=== PATIENT | female | born 1945 | race Caucasian/White ===

== ENCOUNTER 2019-03-25 18:11 | Observation (INO) ==
[2019-03-25] MEDS ORDERED: NS 1,000 ML IV ONE (18:49)
--- NOTE | 2019-03-25 19:35 | Diag Imaging Result Doc PS360 ---
EXAM: CT HEAD W/O CONTRAST HISTORY: X2 LOC TECHNIQUE: CT head without contrast COMPARISON: None. FINDINGS: No parenchymal hemorrhage. No epidural or subdural hematoma. No subarachnoid hemorrhage. There are chronic microvascular ischemic changes. No mass identified on this noncontrasted exam. No hydrocephalus. No sinus opacification. IMPRESSION: 1.No hemorrhage 2.Chronic microvascular ischemic changes This exam was performed using automated exposure control, adjustment of mA or kV according to patient size, and/or use of iterative reconstruction technique. Electronically signed by Gilmar Myles 03/25/2019 7:32 PM
--- NOTE | 2019-03-25 19:36 | Diag Imaging Result Doc PS360 ---
EXAM: CERVICAL SPINE COMPLETE HISTORY: MULTIPLE LOC AND NECK PAIN TECHNIQUE: AP and lateral with obliques, five views COMPARISON: None. FINDINGS: There is good alignment to the cervical spine. No precervical soft tissue swelling. Slight subluxation of C4 on C5. Moderate degenerative bone spurring in the lower cervical spine. IMPRESSION: Moderate degenerative changes in the lower cervical spine. Electronically signed by Gilmar Myles 03/25/2019 7:34 PM
[2019-03-25 20:14] LABS: URINE SOURCE CLEAN CATCH
[2019-03-25 20:14] LABS: BASO# 0.03 X1000 (0.0-0.2); BASO% 0.6 % (0.0-0.8); HEMATOCRIT 35.6 % (37.0-47.0); HEMOGLOBIN 11.9 g/dL (12.0-16.0); LYMPH# 1.08 X1000 (1.2-3.4); LYMPH% 19.8 % (20.5-51.1); MCH 30.4 PG (27-31); MCHC 33.4 g/dL (33-37); MONO# 0.35 X1000 (0.11-0.59); MONO% 6.4 % (1.7-9.3); MPV 9.3 FL (7.4-10.4); NEUT# 3.99 X1000 (1.4-6.5); NEUT% 73.2 % (42.2-75.2); PLT 269 X1000 (130-400); RBC 3.91 XMIL (4.2-5.4); RDW 12.8 % (11.5-14.5); WBC 5.45 X1000 (4.8-10.8)
[2019-03-25 20:22] LABS: AGAP 12; ALB/GLOB RATIO 1.7; ALBUMIN 4.2 g/dL (3.5-5.0); ALKALINE PHOSPHATASE 104 U/L (32-104); BUN 25 mg/dL (8-22); CALCIUM 9.5 mg/dL (8.8-10.2); CHLORIDE 99 mmol/L (98-107); COSMO 268; CREATININE 1.3 mg/dL (0.5-0.9); ESTIMATED GFR 40; GLUCOSE 110 mg/dL (70-104); GOT 17 U/L (10-30); GPT 15 U/L (10-36); POTASSIUM 4.4 mmol/L (3.5-5.1); SODIUM 131 mmol/L (136-145); TCO2 20 mmol/L (25-35); TOTAL BILIRUBIN < 0.15 mg/dL (0.20-1.00); TOTAL PROTEIN 6.7 g/dL (6.3-8.3)
[2019-03-25 20:27] LABS: BILIRUBIN URINE NEGATIVE (NEGATIVE); BLOOD URINE NEGATIVE (NEGATIVE); COLOR YELLOW; GLUCOSE URINE NEGATIVE (NEGATIVE); KETONE URINE NEGATIVE (NEGATIVE); LEUKOCYTES URINE MODERATE (NEGATIVE); NITRITE URINE NEGATIVE (NEGATIVE); PH URINE 6.5; PROTEIN URINE 30 mg/dL (NEGATIVE); SP GRAVITY URINE 1.021; TURBIDITY URINE CLEAR (CLEAR); UROBILINOGEN URINE 2 mg/dL (NORMAL)
[2019-03-25 20:32] LABS: UR EPITHELIAL CELLS <10 /HPF (<10); URINE BACTERIA NEGATIVE /HPF; URINE RBC <10 /HPF (<10); URINE WBC <10 /HPF (<10)
[2019-03-25 20:47] LABS: URINE CRYSTALS CA OXALATE PRESENT
--- NOTE | 2019-03-25 23:04 | PROVIDER DOCUMENTATION ---
This chart was entered by Bhavana Vance Scribe, acting as scribe for Arianna Ortega MD. HPI-Syncope/Dizziness - General Chief Complaint: Syncope Stated Complaint: SYNCOPE Time Seen by Provider: 03/25/19 18:25 Source: patient Allergies/Adverse Reactions: Patient Allergies Allergy/AdvReac Type Severity Reaction Status Date / Time azithromycin Allergy Unknown Verified 12/16/15 22:42 codeine Allergy RASH Verified 12/16/15 22:42 risperidone Allergy Unknown Verified 12/16/15 22:42 Sulfa (Sulfonamide Allergy SWELLING Verified 12/16/15 22:42 Antibiotics) aspirin AdvReac ABDOMINAL Verified 12/16/15 22:42 PAIN ciprofloxacin [From Cipro] AdvReac DIARRHEA Verified 12/16/15 22:42 ciprofloxacin HCl * AdvReac DIARRHEA Verified 12/16/15 22:42 [From Cipro] ketorolac tromethamine * AdvReac Unknown Verified 12/16/15 22:42 [From Toradol] levofloxacin [From Levaquin] AdvReac Unknown Verified 12/16/15 22:42 WALNUTS Allergy SWELLING Uncoded 12/16/15 22:42 Home Medications: Home Medication List Medication Instructions Recorded Confirmed Last Taken Type Apixaban [Eliquis] 2.5 mg PO BID 12/16/15 12/16/15 12/16/15 History Bupropion X.l. [Wellbutrin Xl] 300 mg PO DAILY 12/16/15 12/16/15 12/16/15 Histor y Buspirone [Buspar] 20 mg PO TID 12/16/15 12/16/15 12/16/15 History Clotrimazole 12/16/15 12/16/15 History Denosumab [Prolia] 12/16/15 1 Month Ago History ~11/16/15 Ferrous Sulfate 325 mg PO DAILY 12/16/15 12/16/15 12/16/15 History Fluconazole 150 mg PO DIRECTED 12/16/15 12/16/15 Unknown History Furosemide 40 mg PO QAM 12/16/15 12/16/15 12/16/15 History Gabapentin 600 mg PO TID 12/16/15 12/16/15 12/16/15 History Hydroxyzine [Atarax] 25 mg PO TID 12/16/15 12/16/15 12/16/15 History Lactobacillus Acidophilus 12/16/15 12/16/15 History [Acidophilus] Levothyroxine [Synthroid] 75 mg PO DIRECTED 12/16/15 12/16/15 12/16/15 History Lisinopril 5 mg PO QAM 12/16/15 12/16/15 12/16/15 History Omeprazole 20 mg PO BID 12/16/15 12/16/15 12/16/15 History Oxcarbazepine 600 mg PO BID 12/16/15 12/16/15 12/16/15 History Topiramate [Topamax] 150 mg PO BID 12/16/15 12/16/15 12/16/15 History Tramadol HCl [Ultram] 50 mg PO BID 12/16/15 12/16/15 12/16/15 History Amoxicillin/Potassium Clav 1 each PO BID #20 tablet 12/17/15 Unknown Rx [Augmentin 875-125 Tablet] Nitrofurantoin Monohyd/M-Cryst 100 mg PO BID #20 capsule 12/17/15 Unknown Rx [Macrobid 100 mg Capsule] Phenazopyridine HCl [Pyridium] 200 mg PO TID #6 tablet 12/17/15 Unknown Rx - History of Present Illness-Syncope/Dizzy Nature of Presenting Problem: pt is a 73 yr old female presenting with complaint of syncope today. pt also rep orts she has had 2 episodes in 3 days (SINCE SUNDAY). today pt reports she felt nauseated, weak and dizzy beginning approx 2 hours prior to episode. episode was witnessed by friends. 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 pt denies any chest pain or shortness of breath prior to syncopal episode. PER PATIENT, CURRENTLY ON CEPHALEXIN FOR UTI TREATMENT FOR COURSE OF 14 DAYS TOT AL. CURRENTLY DENIES ANY DYSURIA OR FREQUENT URINATION. Prior Episodes: reports: single episode today, recent history (3x in 3days) Onset/Duration: reports: just prior to arrival Timing: reports: resolved prior to arrival Position/Activity at time of episode: reports: standing Symptoms prior to episode: reports: nausea/vomiting, other (dizzy, weakness). denies: chest pain Duration of preceding symptoms? (mins): 120 Context: reports: lost consciousness, collapsed, confused after event Loss of Consciousness: brief (seconds) Location of injury. (If syncope resulted in an injury.): reports: none Current Symptoms: reports: none/feels normal Recently Seen Here or By Another Healthcare Provider: No Review of Systems - Adult - REVIEW OF SYSTEMS - ADULT Constitutional: reports: fatique. denies: fever Eyes: denies: blurred vision, double vision Ears, Nose, Mouth & Throat: reports: no symptoms reported Cardiovascular: reports: syncope. denies: chest pain, palpitations Respiratory: denies: cough, shortness of breath Gastrointestinal: reports: nausea. denies: abdominal pain, diarrhea, vomiting Genitourinary: reports: no symptoms reported Musculoskeletal: denies: back pain, joint pain, muscle weakness Integumentary: reports: no symptoms reported Neurological: reports: dizziness/vertigo, syncope. denies: headache/migraines, seizure Psychiatric: reports: no symptoms reported Endocrine: reports: no symptoms reported Hematologic/Lymphatic: reports: no symptoms reported Allergic/Immunologic: reports: no symptoms reported All Other Systems: Reviewed and Negative Past History - Adult - PAST MEDICAL HISTORY-ADULT Review of Records: reports: Old Records Reviewed, Nursing Assessment Review, Medications Reviewed, Social history reviewed & non-contributory. Major Childhood Illnesses: reports: denies history Cardiovascular: reports: SD Respiratory: reports: pneumonia, sleep apnea Gastrointestinal: reports: denies history Obstetrical/Gynecological: reports: denies history Genitourinary: reports: denies history Musculoskeletal: reports: denies history Neurological: reports: CVA Endocrine/Immune: reports: denies history Other Conditions: reports: denies history - PRIOR SURGERIES/PROCEDURES Surgical/Procedure History: reports: hysterectomy, other (cataract removal, renal stent ) - IMMUNIZATION STATUS Childhood Immunizations: See Nurse Assessment Flu Vaccine: See Nurse Assessment - FAMILY HISTORY Family History: reviewed, not pertinent - SOCIAL HISTORY Smoking: non-smoker Substance Use: none/never, denies Living Situation: family Physical Exam-General - PHYSICAL EXAM-ADULT Initial Vital Signs Reviewed: Yes - CONSTITUTIONAL General Appearance: appears well, alert, no apparent distress - EYES Eyes: PERRL/EOMI - HEAD, EARS, NOSE, MOUTH & THROAT HENMT: normocephalic/atraumatic, normal ENT inspection. negative: moist mucous membranes (dry lips, mildy dry oral mucosa) - NECK Neck: non-tender, full range of motion, supple, normal inspection - RESPIRATORY Respiratory: chest non-tender, lungs clear, normal breath sounds - CARDIOVASCULAR Cardiovascular: normal peripheral pulses, regular rate, rhythm, no edema - GASTROINTESTINAL (ABDOMEN) Abdominal Exam: normal bowel sounds, non tender, soft - LYMPHATIC Lymphatic: no adenopathy - MUSCULOSKELETAL Back Exam: normal inspection, no CVA tenderness, no vertebral tenderness Extremity: normal range of motion, non-tender, normal gait, normal inspection - SKIN Integumentary: normal color, warm/dry. negative: normal turgor (poor skin tu rgur) - NEUROLOGIC Neurologic: grossly normal, no motor/sensory deficits - PSYCHIATRIC Psych/Mental Status: normal mood/affect, normal thought content, normal thought process, oriented x 3 Progress - PLAN OF CARE/RESULTS Progress/Plan/Lab Results: Vital Signs - 8 hr 03/25/19 18:21 03/25/19 18:29 03/25/19 18:30 Temperature 97.6 F Pulse Rate 97 H 83 Pulse Rate [Sitting] Pulse Rate [Standing] Pulse Rate [Supine] Respiratory Rate 17 13 Blood Pressure 160/91 210/106 Blood Pressure [Sitting] Blood Pressure [Standing] Blood Pressure [Supine] O2 Sat by Pulse Oximetry 97 96 98 03/25/19 18:31 03/25/19 18:32 03/25/19 18:45 Temperature Pulse Rate 79 80 75 Pulse Rate [Sitting] Pulse Rate [Standing] Pulse Rate [Supine] Respiratory Rate 19 17 9 L Blood Pressure 185/112 158/87 Blood Pressure [Sitting] Blood Pressure [Standing] Blood Pressure [Supine] O2 Sat by Pulse Oximetry 97 97 99 03/25/19 19:14 03/25/19 19:15 03/25/19 19:30 Temperature Pulse Rate 76 76 78 Pulse Rate [Sitting] Pulse Rate [Standing] Pulse Rate [Supine] Respiratory Rate 29 H 14 17 Blood Pressure 165/96 175/105 Blood Pressure [Sitting] Blood Pressure [Standing] Blood Pressure [Supine] O2 Sat by Pulse Oximetry 98 98 03/25/19 19:45 03/25/19 19:46 03/25/19 19:53 Temperature Pulse Rate 73 77 76 Pulse Rate [Sitting] Pulse Rate [Standing] Pulse Rate [Supine] Respiratory Rate 11 L 19 11 L Blood Pressure 153/85 163/85 Blood Pressure [Sitting] Blood Pressure [Standing] Blood Pressure [Supine] O2 Sat by Pulse Oximetry 98 99 03/25/19 19:54 03/25/19 19:55 03/25/19 19:56 Temperature Pulse Rate 79 84 79 Pulse Rate [Sitting] Pulse Rate [Standing] Pulse Rate [Supine] Respiratory Rate 15 23 9 L Blood Pressure 156/107 171/95 177/125 Blood Pressure [Sitting] Blood Pressure [Standing] Blood Pressure [Supine] O2 Sat by Pulse Oximetry 99 97 97 03/25/19 20:00 03/25/19 20:05 03/25/19 20:15 Temperature Pulse Rate 83 79 Pulse Rate [Sitting] 80 Pulse Rate [Standing] 81 Pulse Rate [Supine] 76 Respiratory Rate 13 15 Blood Pressure 166/86 Blood Pressure [Sitting] 156/107 Blood Pressure [Standing] 171/95 Blood Pressure [Supine] 163/85 O2 Sat by Pulse Oximetry 99 99 Laboratory Results - last 24 hr 03/25/19 03/25/19 03/25/19 18:36 18:36 19:45 WBC 5.45 RBC 3.91 L Hgb 11.9 L Hct 35.6 L MCV 91.0 MCH 30.4 MCHC 33.4 RDW Std Deviation 12.8 Plt Count 269 MPV 9.3 Immature Gran % (Auto) 0.0 Neut % (Auto) 73.2 Lymph % (Auto) 19.8 L [place] % (Auto) 6.4 Eos % (Auto) 0.0 Baso % (Auto) 0.6 Immature Gran # (Auto) 0.00 Neut # (Auto) 3.99 Lymph # (Auto) 1.08 L [place] # (Auto) 0.35 Eos # (Auto) 0.00 Baso # (Auto) 0.03 Sodium 131 L Potassium 4.4 Chloride 99 Carbon Dioxide 20 L Anion Gap 12 BUN 25 H Creatinine 1.3 H Estimated GFR/1.73 m2 40 BUN/Creatinine Ratio 19 Glucose 110 H POC Glucose 98 Calculated Osmolality 268 Calcium 9.5 Magnesium 2.0 Total Bilirubin < 0.15 L AST 17 ALT 15 Alkaline Phosphatase 104 Total Protein 6.7 Albumin 4.2 Globulin 2.5 Albumin/Globulin Ratio 1.7 Urine Source Urine Color Urine Turbidity Urine pH Ur Specific [place] Urine Protein Ur Glucose (Stick) Ur Ketones (Stick) Urine Blood Urine Nitrite Urine Bilirubin Urobilinogen Dipstick Urine Leukocytes Urine WBC (Auto) Urine RBC (Auto) U Epithel Cells (Auto) Urine Bacteria (Auto) Urine Crystals Small Round Cells Urine Casts Urine Yeast-like Cells 03/25/19 20:07 WBC RBC Hgb Hct MCV MCH MCHC RDW Std Deviation Plt Count MPV Immature Gran % (Auto) Neut % (Auto) Lymph % (Auto) [place] % (Auto) Eos % (Auto) Baso % (Auto) Immature Gran # (Auto) Neut # (Auto) Lymph # (Auto) [place] # (Auto) Eos # (Auto) Baso # (Auto) Sodium Potassium Chloride Carbon Dioxide Anion Gap BUN Creatinine Estimated GFR/1.73 m2 BUN/Creatinine Ratio Glucose POC Glucose Calculated Osmolality Calcium Magnesium Total Bilirubin AST ALT Alkaline Phosphatase Total Protein Albumin Globulin Albumin/Globulin Ratio Urine Source CLEAN CATCH Urine Color YELLOW Urine Turbidity CLEAR Urine pH 6.5 Ur Specific [place] 1.021 Urine Protein 30 A Ur Glucose (Stick) NEGATIVE Ur Ketones (Stick) NEGATIVE Urine Blood NEGATIVE Urine Nitrite NEGATIVE Urine Bilirubin NEGATIVE Urobilinogen Dipstick 2 A Urine Leukocytes MODERATE A Urine WBC (Auto) <10 Urine RBC (Auto) <10 U Epithel Cells (Auto) <10 Urine Bacteria (Auto) NEGATIVE Urine Crystals CA OXALATE PRESENT Small Round Cells Not Reportable Urine Casts Not Reportable Urine Yeast-like Cells Not Reportable Orders Category Date Time Status Nursing- Obtain EKG ONCE Care 03/25/19 18:47 Active Orthostatic Vital Signs NOW Care 03/25/19 18:48 Active CERVICAL SPINE COMPLETE [RAD] Stat Exams 03/25/19 18:[address] HEAD W/O CONTRAST [CT] Stat Exams 03/25/19 18:47 Completed CBC WITH ELECTRONIC DIFF [HEME] Stat Lab 03/25/19 18:36 Completed COMPREHENSIVE METABOLIC PANEL [CHEM] Stat Lab 03/25/19 18:36 Completed MAGNESIUM [CHEM] Stat Lab 03/25/19 18:36 Completed URINALYSIS [URINALYSIS] Stat Lab 03/25/19 20:07 Completed URINE MANUAL MICROSCOPIC [URINALYSIS] Stat Lab 03/25/19 20:07 Completed 0.9% Sodium Chloride Inj [Ns] 1,000 ml Med 03/25/19 18:49 Discontinued IV 999 mls/hr EKG [EKG] Stat Ther 03/25/19 18:47 Ordered Result Diagrams: 03/25/19 18:36 03/25/19 18:36 - REASSESSMENT Reassessment #1 Time Reassessed: 22:57 Status: other (SPOKE TO HOSPITALIST AND LIKELY DEHYDRATION IN THE SETTING OF UTI AND ALSO AT SAME TIME, PATIENT HAS HAD MULTIPLE LOC THEREFORE, WILL DO OBSERVATION. SPOKE TO HOSPITALIST AND APPREIATE THEIR ASSISTANCE.) - EKG 1 Time of EKG reading by physician:: 18:33 EKG Read and Signed by:: Arianna Ortega EKG Interpretation (*Must complete 3 of following elements*): Abnormal (non specific st abnormality) Rate: 79 Rhythm: nsr [place]: normal QRS: normal IN Interval: normal ST Wave: non-specific ST changes - CT/MRI 1 CT Study: Head ([facility] - [address] [address], [address], [place] [address] [facility] - [address] [place] [address] Department of Imaging Patient: ALLA DENIS Date: 03/25/19#: [id number] : 1945DM Status: PRE ERAcct#: [id number] Age/Sex: 73/FRoom/Bed: Loc: ED Ordering Physician: Arianna Ortega MD Family Physician: None,PCP Reason for Procedure: X2 LOC ___ Signed EXAM: CT HEAD W/O CONTRAST HISTORY: X2 LOC TECHNIQUE: CT head without contrast COMPARISON: None. FINDINGS: No parenchymal hemorrhage. No epidural or subdural hematoma. No subarachnoid hemorrhage. There are chronic microvascular ischemic changes. No mass identified on this noncontrasted exam. No hydrocephalus. No sinus opacification. IMPRESSION: 1.No hemorrhage 2.Chronic microvascular ischemic changes This exam was performed using automated exposure control, adjustment of mA or kV according to patient size, and/or use of iterative reconstruction technique. Electronically signed by Gilmar Myles 03/25/2019 7:32 PM 03/25/191931 Interpreting Physician: Gilmar Myles MD Dictated Date/Time: 03/25/191930 cc: Arianna Ortega MD; None,PCP) Departure - Departure Date of Disposition Decision: 03/25/19 Time of Disposition Decision: 23:03 DIAGNOSIS: Syncope and collapse, Dehydration Disposition: ADMITTED INPATIENT 09 Certified Medical Emergency: Emergent Condition: Fair Referrals and Follow-Ups: None,PCP [Primary Care Provider] - - Critical Care Note This patient required my direct & personal management of CC.: No Attestation - Physician/ GEOFF Attestation Patient care was provided by Advanced Practice Provider:: No The physician spent face to face time with patient:: Yes Advanced Practice Provider documentation review:: Supervising physician onsite and consulted in the evaluation and care of this patient. The physician did have a face to face encounter with the patient. This chart was documented by the indicated scribe, (Bhavana Vance, [employer]) and accurately reflects the services I performed and decisions made by me, Arianna Ortega MD, as attested by the provider's signature.
--- NOTE | 2019-03-26 00:16 | HISTORY AND PHYSICAL ---
PRIMARY CARE PHYSICIAN: Is in [place]. CHIEF COMPLAINT: Passed out, had about 2 episodes. HISTORY OF PRESENTING ILLNESS: The patient is a 73-year-old female with a history of solitary kidney, kidney stones, hypertension, gastric ulcers and CVA, who presented to the emergency department after she had 2 episodes where she got weak and passed out. The patient states that recently she was not eating or drinking enough for several days. She was evaluated in the emergency department, she seemed dehydrated, and due to her presenting symptoms it was thought that she would need admission for further management. At the time of my examination the patient had denied any headache, fever, chills, chest pain, shortness of breath or any weight changes, but states that she feels weak all over. PAST MEDICAL HISTORY: Of a solitary kidney, kidney stones, hypertension, gastric ulcers, CVA. PAST SURGICAL HISTORY: Ureteral surgeries, hysterectomy, bilateral shoulder surgery, stomach surgery. ALLERGIES: Azithromycin, codeine, Risperdal. CURRENT MEDICATIONS: Include Eliquis 2.5 mg p.o. b.i.d., Wellbutrin 300 mg p.o. daily, Buspar 20 mg p.o. t.i.d., Lasix 40 mg p.o. q.a.m., gabapentin 601 p.o. t.i.d., hydroxyzine 25 mg p.o. t.i.d., levothyroxine 100 mcg p.o. daily, lisinopril 10 mg p.o. q.a.m., omeprazole 20 mg p.o. b.i.d., Topamax 150 mg p.o. b.i.d., Ultram 50 mg p.o. b.i.d. SOCIAL HISTORY: No history of smoking, alcohol or illicit drug use. FAMILY HISTORY: No history of coronary disease. REVIEW OF SYSTEMS: Fourteen point review of systems is as listed as in HPI, other systems negative. PHYSICAL EXAMINATION: GENERAL: A cooperative friendly female, she is resting more comfortably now. VITAL SIGNS: Temperature 97.6 degrees, pulse 97, respirations 17, blood pressure 160/91. HEENT: Atraumatic, normocephalic. Extraocular movements intact. PERRLA. NECK: No masses. CHEST: Clear to auscultation. CARDIOVASCULAR: Regular rate and rhythm. ABDOMEN: Soft. Positive bowel sounds. EXTREMITIES: No edema. NEUROLOGIC: She is awake, alert, oriented x3. : No bladder distention. SKIN: Warm, but has poor turgor. LABORATORIES AND STUDIES: UA shows moderate leukocytes. Sodium 131, potassium 4.4, chloride 99, CO2 is 20, BUN is 25, creatinine is 1.3, glucose 110. WBC is 5.45, hemoglobin 11.9, hematocrit 35.6, platelets 269,000. CT of the head no hemorrhage. ASSESSMENT: A 73-year-old female with a history of solitary kidney, kidney stones, hypertension, gastric ulcers, and CVA who had presented to the emergency department with the patient having several episodes of where she passed out. Apparently she was not eating or drinking well, she seemed dehydrated in the ED, and she will require admission for further management. ASSESSMENT: 1. Syncopal episodes. 2. Acute dehydration. 3. Possible urinary tract infection. 4. Hypertension. PLAN: 1. We will admit the patient to a medical floor with telemetry. 2. We will check orthostatic blood pressure and pulse. 3. We will check echocardiogram. 4. We will check carotid duplex. 5. Continue with IV fluid hydration. 6. Check urine cultures. Start the patient on empiric antibiotics. 7. We will monitor blood pressure closely. Resume antihypertensive agents. 8. The patient is on Eliquis and this will suffice for DVT prophylaxis. 9. We will continue to follow, reassess and make further recommendation based on the patient's clinical course. cc: Ant Garcia MD
[2019-03-26] MEDS ORDERED: ZOFRAN IV PRN (01:46)
[2019-03-26] MEDS: ROCEPHIN 1 GM in NS 50 ML IV SCH (03:09)
[2019-03-26] MEDS: NS 1,000 ML IV SCH ×3 (03:09→14:23)
[2019-03-26] MEDS ORDERED: SYNTHROID PO SCH (07:00)
[2019-03-26 07:26] LABS: BASO# 0.03 X1000 (0.0-0.2); BASO% 0.7 % (0.0-0.8); HEMATOCRIT 32.7 % (37.0-47.0); HEMOGLOBIN 10.7 g/dL (12.0-16.0); LYMPH# 2.26 X1000 (1.2-3.4); LYMPH% 54.5 % (20.5-51.1); MCH 29.9 PG (27-31); MCHC 32.7 g/dL (33-37); MCV 91.3 FL (81-99); MONO# 0.33 X1000 (0.11-0.59); MPV 8.9 FL (7.4-10.4); NEUT# 1.53 X1000 (1.4-6.5); NEUT% 36.8 % (42.2-75.2); PLT 227 X1000 (130-400); RBC 3.58 XMIL (4.2-5.4); RDW 12.7 % (11.5-14.5); WBC 4.15 X1000 (4.8-10.8)
[2019-03-26 07:43] LABS: CALCIUM 8.4 mg/dL (8.8-10.2); CREATININE 1.2 mg/dL (0.5-0.9); POTASSIUM 3.8 mmol/L (3.5-5.1)
[2019-03-26] MEDS ORDERED: LASIX PO SCH (09:00)
[2019-03-26] MEDS: ATARAX PO SCH ×3 (09:40→22:13)
[2019-03-26] MEDS: PRILOSEC PO SCH ×2 (09:40→22:08)
[2019-03-26] MEDS: TOPAMAX PO SCH ×2 (09:40→22:08)
[2019-03-26] MEDS: TRILEPTAL PO SCH ×2 (09:40→22:07)
[2019-03-26] MEDS: BUSPAR PO SCH ×3 (09:40→22:13)
[2019-03-26] MEDS: ELIQUIS PO SCH ×2 (09:41→22:09)
--- NOTE | 2019-03-26 16:10 | EKG Report ---
Test Performed on : 03/26/2019 4:04:47 PM Test Reason : Baseline Blood Pressure : / mmHG Vent. Rate : 073 BPM Atrial Rate : 073 BPM P-R Int : 200 ms QRS Dur : 104 ms QT Int : 402 ms P-R-T Axes : 080 052 059 degrees QTc Int : 442 ms Normal sinus rhythm. Normal ECG No previous ECGs available Confirmed by Maik Alvarez MD ([id number]) on 03/27/2019 9:00:33 AM
--- NOTE | 2019-03-26 17:25 | ECHO REPORT ---
ORDER DATE: 03/26/2019 INDICATION: Syncope, kidney stones. M-MODE MEASUREMENTS: Left ventricle end diastole: 4.7. Left ventricle end systole: 3.0. Posterior wall: 0.7. Interventricular septum: 0.7. Left atrium: 2.8. Aortic diameter: 2.9. SUMMARY OF 2-DIMENSIONAL IMAGIN. The left ventricular chamber is not dilated. Left ventricular systolic function is normal with an ejection fraction of 66%. There is no wall motion abnormality noted. 2. The left atrium is significantly enlarged. 3. The aortic valve is normal. Color flow mapping is unremarkable. 4. The mitral valve shows a mild degree of regurgitation. 5. Pulsed wave Doppler of mitral inflow shows normal E/A ratio. 6. Tissue Doppler of septal and lateral mitral annulus averages 8 cm. 7. There is no diastolic dysfunction. 8. The tricuspid valve shows a mild degree of regurgitation. Pulmonary pressure is estimated at 28 mmHg. 9. The pulmonic valve appears to be grossly unremarkable. 10.There is no pericardial effusion, no mass and no thrombus. 11.The right-sided chambers do not appear to be prominent. Clinical correlation recommended. cc: MD Ant Childs MD
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
[2019-03-27] MEDS: NS 1,000 ML IV SCH (00:39)
[2019-03-27] MEDS: ROCEPHIN 1 GM in NS 50 ML IV SCH ×2 (00:39→05:32)
[2019-03-27 08:38] LABS: CALCIUM 8.9 mg/dL (8.8-10.2); CREATININE 1.3 mg/dL (0.5-0.9)
[2019-03-27] MEDS: BUSPAR PO SCH ×2 (08:50→12:55)
[2019-03-27] MEDS: PRILOSEC PO SCH (08:50)
[2019-03-27] MEDS: TOPAMAX PO SCH (08:50)
[2019-03-27] MEDS: ATARAX PO SCH ×2 (08:51→12:54)
[2019-03-27] MEDS: ELIQUIS PO SCH (08:51)
[2019-03-27] MEDS: TRILEPTAL PO SCH (08:51)
[2019-03-27 16:14] VITALS: BP 150/83
--- NOTE | 2019-03-27 21:54 | Carotid Study ---
DATE: 03/26/2019 REFERRING PHYSICIAN: Dr. Isak Garcia. INTERPRETATION: Dr. Marco Doll. [employer]: [employer]. INDICATION: The patient has syncope. Carotid imaging is done. VELOCITIES: As noted. FINDINGS: The right internal/common carotid ratio is 1.1, left 1.5. Percent stenosis is 0% to 39% on the right, 0% to 39% on the left. No significant plaque disease identified. INTERPRETATION: No significant plaque disease identified. There is antegrade vertebral flow bilaterally. cc: MD Ant Ash MD
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
--- NOTE | 2019-03-28 13:52 | EKG Report ---
Test Performed on : 03/25/2019 6:33:12 PM Test Reason : LOC Blood Pressure : / mmHG Vent. Rate : 079 BPM Atrial Rate : 079 BPM P-R Int : 164 ms QRS Dur : 094 ms QT Int : 374 ms P-R-T Axes : 091 047 048 degrees QTc Int : 428 ms Normal sinus rhythm. Nonspecific ST abnormality Abnormal ECG No previous ECGs available Unconfirmed Result
== END 2019-03-27 16:53 | disposition home or self-care (01) ==
LOC: 3N 18:11 → ED 18:11 → SUATTDRO 03-26 00:37
PROVIDERS: ATTEND Internal Medicine